=== PATIENT | male | born 1985 | race Hispanic/Latino ===

== ENCOUNTER 2018-05-02 12:45 | Emergency (ER) | payer OTHER ==
[2018-05-02] MEDS ORDERED: CEFTRIAXONE SODIUM 1 GM ONE (13:39)
[2018-05-02] MEDS ORDERED: LIDOCAINE HCL-MPF 1% 2ML VIAL ONE (13:39)
== END 2018-05-02 14:05 | disposition home or self-care (01) ==
LOC: EDH 12:45
DX: L02.215 Cutaneous abscess of perineum (principal); Z72.0 Tobacco use
CPT/HCPCS: 96372; 99283; J0696; J3490

== ENCOUNTER 2018-08-12 07:58 | Emergency (ER) | payer SELFPAY ==
[2018-08-12] MEDS ORDERED: SODIUM CHLORIDE 0.9% 1000ML 1,000 ML IV ONE (08:25)
[2018-08-12] MEDS ORDERED: MORPHINE SULFATE 4 MG/1ML SYG ONE ×2 (08:25→09:47)
[2018-08-12] MEDS ORDERED: ONDANSETRON HCL 4 MG/2 ML VIAL ONE (08:25)
[2018-08-12] MEDS ORDERED: LIDOCAINE HCL 1% 20 ML VIAL ONE (08:25)
[2018-08-12 08:48] LABS: BASOPHILS % (AUTO) 0.4 % (0.0-5.0); EOSINOPHILS % (AUTO) 1.6 % (0.0-8.0); HEMATOCRIT 37.8 % (42-54); LYMPHOCYTES % (AUTO) 19.2 % (21.0-51.0); MEAN CORPUSCULAR HEMOGLOBIN 29.7 pg (27.0-33.0); MEAN CORPUSCULAR HGB CONC 33.3 g/dL (32.0-36.0); MEAN CORPUSCULAR VOLUME 89.2 fL (79-99); MONOCYTES % (AUTO) 9.2 % (3.0-13.0); NEUTROPHILS % (AUTO) 69.6 % (40.0-77.0); PLATELET COUNT (AUTO) 251 K/uL (130-400); RED BLOOD CELL COUNT(AUTO) 4.24 MIL/uL (4.50-6.20); RED CELL DISTRIBUTION WIDTH 15.1 % (11.0-15.5); WHITE BLOOD COUNT (AUTO) 10.6 K/uL (4.8-10.8)
[2018-08-12 08:57] LABS: CREATININE 0.9 mg/dL (0.5-1.5); POTASSIUM 3.7 mmol/L (3.5-5.1)
[2018-08-12 09:01] LABS: ALBUMIN 3.3 g/dL (3.5-5.0); BILIRUBIN,TOTAL 0.3 mg/dL (0.2-1.0); TOTAL PROTEIN, SERUM 7.1 g/dL (6.0-8.3)
[2018-08-12] MEDS ORDERED: CEFTRIAXONE SODIUM 1 GM ONE (09:44)
== END 2018-08-12 11:02 | disposition home or self-care (01) ==
LOC: EDH 07:58
DX: L02.215 Cutaneous abscess of perineum (principal); L02.214 Cutaneous abscess of groin
CPT/HCPCS: 10061; 36415; 80053; 85025; 87040 ×2; 87070; 87076; 99284; J0696; J2270 ×2; J2405; J7030